=== PATIENT | male | born 1950 | race Caucasian/White ===

== ENCOUNTER → 2018-08-30 | Outpatient (CLI) | payer BC, MEDICARE ==
--- NOTE | 2018-08-30 14:50 | KCIC ---
CHEST PA LATERAL Clinical indications: Cough for 2 weeks. COMPARISON: No previous chest x-rays available. Findings: No acute lung infiltrate or pleural effusion or pulmonary edema or lung mass or pneumothorax is seen. The heart size, pulmonary vasculature, mediastinum and both shmuel are unremarkable. The osseous structures appear intact. Impression: No acute radiographic abnormality is seen. Electronically signed by: Gui Briceno MD (08/30/2018 2:47 PM) [place] [id number]
== END | disposition home or self-care (01) ==
LOC: KCIC 11:28
PROVIDERS: ATTEND Family Medicine
DX: R05 Cough (principal)
CPT/HCPCS: 71046